=== PATIENT | female | born 1985 | race Caucasian/White ===

== ENCOUNTER → 2019-07-01 | Outpatient (CLI) | payer OTHER ==
[~2019-07-01] MED LIST: BCP; HYDMOR2 PO; NAPR500 PO; RXHYDMOR2 PO
[2019-07-01 18:30] LABS: BASOPHILS ABSOLUTE AUTO 0.06 K/mm3 (0.00-0.23); BASOPHILS PERCENT AUTO 1 % (0-2); EOSINOPHILS ABSOLUTE AUTO 0.33 K/mm3 (0.00-0.68); EOSINOPHILS PERCENT AUTO 4 % (0-6); Hematocrit 37.9 % (33.0-51.0); Hemoglobin 11.8 g/dL (11.5-16.0); IMMATURE GRAN ABSOLUTE AUTO 0.02 K/mm3 (0.00-0.10); IMMATURE GRAN PERCENT AUTO 0 % (0-1); LYMPHOCYTES ABSOLUTE AUTO 3.44 K/mm3 (0.84-5.20); LYMPHOCYTES PERCENT AUTO 40 % (21-46); MONOCYTES ABSOLUTE AUTO 0.65 K/mm3 (0.16-1.47); MONOCYTES PERCENT AUTO 8 % (4-13); Mean Corpuscular HGB 26.8 pg (26.0-34.0); Mean Corpuscular HGB Conc 31.1 g/dL (31.5-36.5); Mean Corpuscular Volume 86 fL (80-100); Mean Platelet Volume 9.8 fL (9.1-12.4); NEUTROPHILS ABSOLUTE AUTO 4.16 K/mm3 (1.96-9.15); NEUTROPHILS PERCENT AUTO 48 % (41-73); Platelet Count 321 K/mm3 (150-400); RDW Coefficient Variation 14.6 % (11.7-14.2); RDW Standard Deviation 46.6 fL (35.1-46.3); Red Blood Cell Count 4.41 M/mm3 (3.80-5.20); White Blood Cell Count 8.66 K/mm3 (4.00-11.30)
== END | disposition home or self-care (01) ==
LOC: LAB SHORT 17:30 → LAB 17:30
PROVIDERS: Emergency Medicine
DX: R53.83 Other fatigue (principal)
CPT/HCPCS: 84443; 85025

== ENCOUNTER 2020-02-02 06:13 | Day surgery (SDC) | payer OTHER ==
[~2020-02-02] VITALS: Ht 165.1 cm; Wt 94.7 kg
[~2020-02-02 06:13] MED LIST changes: +OMEP20ER PO
[2020-02-02] MEDS ORDERED: SERT100 (06:48)
[2020-02-02] MEDS ORDERED: HYDCHL25 (06:48)
[2020-02-02] MEDS ORDERED: Norco 5-325 Ta1 EACH (06:49)
--- NOTE | 2020-02-02 09:12 | NUR ---
02/02/20 0912 Sara Gray UPON ARRIVING TO STEP DOWN RN ASSISTED PT TO THE CHAIR. RN PROVIDED WARM BLANKETS, BEVERAGES, SNACKS, CALL LIGHT. PT STATED SHE WOULD NOT LIKE HER FRIEND BACK AT THIS TIME. VSS. PT STATED NAUSEA HAS RESOLVED AND IS TOLERAING PO FLUIDS AND SNACKS WELL. PT STATED AT 903 THAT HER PAIN WAS 6/10. RN TREATED WITH IV PAIN MEDICATION PER DR'S ORDERS. NO NEEDS AT THIS TIME. PT IS RESTING WITH EYES CLOSED.
== END 2020-02-02 09:50 | disposition home or self-care (01) ==
LOC: ORSCSDS 06:13
PROVIDERS: Obstetrics & Gynecology
PROC: 0UB74ZZ Excision of Bilateral Fallopian Tubes, Percutaneous Endoscopic Approach (ICD-10-PCS; principal; 2020-02-02 07:30)
DX: Z30.2 Encounter for sterilization (principal); N80.3 Endometriosis of pelvic peritoneum; Z87.891 Personal history of nicotine dependence
CPT/HCPCS: 88302; J0171; J0690; J1100; J1885; J2250; J2405; J2704; J2710; J2765; J3010; J7120

== ENCOUNTER 2020-12-12 06:04 | Day surgery (SDC) | payer OTHER ==
[2020-12-10 12:20] LABS: BASOPHILS ABSOLUTE AUTO 0.06 K/mm3 (0.00-0.23); BASOPHILS PERCENT AUTO 1 % (0-2); EOSINOPHILS ABSOLUTE AUTO 0.15 K/mm3 (0.00-0.68); EOSINOPHILS PERCENT AUTO 2 % (0-6); Hematocrit 31.9 % (33.0-51.0); Hemoglobin 9.7 g/dL (11.5-16.0); IMMATURE GRAN ABSOLUTE AUTO 0.02 K/mm3 (0.00-0.10); IMMATURE GRAN PERCENT AUTO 0 % (0-1); LYMPHOCYTES PERCENT AUTO 33 % (21-46); MONOCYTES ABSOLUTE AUTO 0.45 K/mm3 (0.16-1.47); MONOCYTES PERCENT AUTO 6 % (4-13); Mean Corpuscular HGB 25.4 pg (26.0-34.0); Mean Corpuscular HGB Conc 30.4 g/dL (31.5-36.5); Mean Corpuscular Volume 84 fL (80-100); Mean Platelet Volume 9.3 fL (9.1-12.4); NEUTROPHILS ABSOLUTE AUTO 4.86 K/mm3 (1.96-9.15); NEUTROPHILS PERCENT AUTO 59 % (41-73); Platelet Count 385 K/mm3 (150-400); RDW Coefficient Variation 13.6 % (11.7-14.2); RDW Standard Deviation 41.1 fL (35.1-46.3); Red Blood Cell Count 3.82 M/mm3 (3.80-5.20); White Blood Cell Count 8.24 K/mm3 (4.00-11.30)
[2020-12-10 14:22] LABS: Alanine Aminotransfer (ALT/SGP 23 U/L (12-78); Albumin, Blood 3.7 g/dL (3.4-5.0); Albumin/Globulin Ratio 1.1 (0.8-1.8); Alk Phos 57 U/L (50-136); Anion Gap 5 mmol/L (6-16); Aspartate Aminotrans (AST/SGOT 11 U/L (12-37); Bilirubin, Total 0.2 mg/dL (0.1-1.0); Blood Urea Nitrogen 15 mg/dL (8-24); Bun/Creatinine Ratio 23.6 (12.0-20.0); CO2, Blood 27 mmol/L (21-32); Chloride, Blood 105 mmol/L (98-108); Creatinine, Blood 0.64 mg/dL (0.40-1.00); Globulin, Blood 3.4 g/dL (2.2-4.0); Glomerular Filtration Rate >60 (60-); Glucose, Blood 91 mg/dL (70-99); Potassium, Blood 3.2 mmol/L (3.5-5.5); Sodium, Blood 137 mmol/L (136-145); Total Protein, Blood 7.1 g/dL (6.4-8.2)
[~2020-12-12] VITALS: Ht 165.1 cm; Wt 95.8 kg
[~2020-12-12 06:04] MED LIST changes: +HYDCHL25 PO; +Norco 5-325 Ta1 EACH; +SERT100 PO
--- NOTE | 2020-12-12 06:50 | NUR ---
Ambulatory in Day Surgery History, Chart, Medications and Allergies reviewed before start of procedure. Lungs clear T/O to Auscultation. Patient confirms NPO status and agrees with scheduled surgery. Pre-Op teaching done. Pt verbalizes understanding.
--- NOTE | 2020-12-12 11:35 | NUR ---
RECEIVED PT FROM ELVA [place] IN PACU. PT VERY SLEEPY BUT AROUSABLE, A/O, AND ABLE TO ANSWER QUESTIONS APPROPRIATELY. SLID OVER TO THE BED USING A SLIDER SHEET. ON 2 LITERS O2. REPORTS NO PAIN EXCEPT FOR SOME CRAMPING. K-PAD PROVIDED FOR COMFORT. REPORTS NO NAUSEA. LAP SITES CDI, MCCOY IN PLACE, PATENT AND DRAINING TO GRAVITY. MINIMAL DRAINAGE NOTED ON IRAM PAD.
--- NOTE | 2020-12-12 17:18 | NUR ---
SHIFT SUMMARY PT STATUS POST FOR TOTAL LAP HYSTER WITH A L OOPHORECTOMY. PT IS AMBULATING WELL IN THE ROOM. MCCOY HAS BEEN DC'D AND PT IS VOIDING WELL ON HER OWN. C/O CRAMPING PAIN IN THE ABD THAT IS WELL CONTROLLED WITH ORAL PAIN MEDICATION. BEEN RESTING COMFORTABLY FOR THE MAJORITY OF THE SHIFT VSS. WILL REPORT TO TENZIN STEVENSON.
--- NOTE | 2020-12-12 19:07 | NUR ---
RECEIVED REPORT AND ASSUMED CARE OF PT. SHE IS LYING IN BED, AWAKE, ALERT AND RESPONSIVE. SHE REPORTS ADEQUATE PAIN CONTROL AT THIS TIME, DENIES ANY NEEDS. DENIES NEEDING ANY ASSISTANCE TO THE BATHROOM. MALINDA.
[2020-12-13 04:18] LABS: BASOPHILS ABSOLUTE AUTO 0.03 K/mm3 (0.00-0.23); BASOPHILS PERCENT AUTO 0 % (0-2); EOSINOPHILS ABSOLUTE AUTO 0.03 K/mm3 (0.00-0.68); EOSINOPHILS PERCENT AUTO 0 % (0-6); Hematocrit 31.6 % (33.0-51.0); Hemoglobin 9.6 g/dL (11.5-16.0); IMMATURE GRAN ABSOLUTE AUTO 0.06 K/mm3 (0.00-0.10); IMMATURE GRAN PERCENT AUTO 0 % (0-1); LYMPHOCYTES ABSOLUTE AUTO 3.04 K/mm3 (0.84-5.20); LYMPHOCYTES PERCENT AUTO 19 % (21-46); MONOCYTES ABSOLUTE AUTO 0.95 K/mm3 (0.16-1.47); MONOCYTES PERCENT AUTO 6 % (4-13); Mean Corpuscular HGB 25.4 pg (26.0-34.0); Mean Corpuscular HGB Conc 30.4 g/dL (31.5-36.5); Mean Corpuscular Volume 84 fL (80-100); Mean Platelet Volume 9.3 fL (9.1-12.4); NEUTROPHILS ABSOLUTE AUTO 11.92 K/mm3 (1.96-9.15); NEUTROPHILS PERCENT AUTO 74 % (41-73); Platelet Count 384 K/mm3 (150-400); RDW Coefficient Variation 13.8 % (11.7-14.2); RDW Standard Deviation 42.2 fL (35.1-46.3); Red Blood Cell Count 3.78 M/mm3 (3.80-5.20); White Blood Cell Count 16.03 K/mm3 (4.00-11.30)
--- NOTE | 2020-12-13 04:52 | NUR ---
SHIFT SUMMARY: CHERYL IS A&OX4. VSS, NO ACUTE EVENTS OVERNIGHT. IS GIVEN, EDUCATED AND ENCOURAGED, PT VERBALIZED UNDERSTANDING. SHE REPORTS ADEQUATE PAIN CONTROL WITH TORADOL AND PERCOCET. SHE IS INDEPENDENT IN THE ROOM, VOIDING WITHOUT DIFFICULTY. ABDOMINAL BINDER IN PLACE. IV TO R HAND PATENT, TOLERATING PO INTAKE WELL, LAP SITES C/D&I. SHE IS LYING IN BED WITH THE CALL LIGHT IN REACH. WILL REPORT TO DAY SHIFT RN.
[2020-12-13] MEDS ORDERED: DOCU100 PO (11:08)
[2020-12-13] MEDS ORDERED: IBUP400 PO (11:09)
[2020-12-13] MEDS ORDERED: DULCOLAX400 MG/5 M PO (11:09)
[2020-12-13] MEDS ORDERED: PROM25 PO (11:10)
[2020-12-13] MEDS ORDERED: Percocet 5-3251 EACH PO (11:10)
[2020-12-13] MEDS ORDERED: SENN187 PO (11:11)
[2020-12-13] MEDS ORDERED: SIME80CH PO (11:11)
--- NOTE | 2020-12-13 11:51 | NUR ---
DISCHARGE SUMMARY PT A&OX4, VSS, INDEPENDENT IN ROOM, TO BRP, VOIDING WELL, PAIN MANAGED WITH 10 MG PRN, JACE PO; DISCHARGE INSTRUCTIONS PROVIDED, PT REP UNDERSTANDING THOSE INSTRUCTIONS. LEFT FLOOR WALKING OUT (DECLINING WC), TO GO HOME WITH MOM, WITH ALL PERSONAL POSSESSIONS INCLUDING DC PACKET AND SCRIPT WITH PERC/PHENERGAN AND MOTRIN. IV DC'D.
== END 2020-12-13 11:47 | disposition home or self-care (01) ==
LOC: ORSCMMR 06:04 → SURS 12:10 → ORSCMMR 14:00 → ORD 14:00 → ORSCMMR 12-13 11:47
PROVIDERS: Obstetrics & Gynecology
PROC: 0UT14ZZ Resection of Left Ovary, Percutaneous Endoscopic Approach (ICD-10-PCS; principal; 2020-12-12 07:30)
PROC: 8E0W4CZ Robotic Assisted Procedure of Trunk Region, Percutaneous Endoscopic Approach (ICD-10-PCS; principal; 2020-12-12 07:30)
PROC: 0UT94ZZ Resection of Uterus, Percutaneous Endoscopic Approach (ICD-10-PCS; principal; 2020-12-12 07:30)
DX: N92.1 Excessive and frequent menstruation with irregular cycle (principal); N94.6 Dysmenorrhea, unspecified; D50.0 Iron deficiency anemia secondary to blood loss (chronic); I10 Essential (primary) hypertension; E66.01 Morbid (severe) obesity due to excess calories; Z68.35 Body mass index [BMI] 35.0-35.9, adult
CPT/HCPCS: 58571; S2900; 36415; 80053; 85025; 86850; 86900; 86901; A9270; J0690; J1100; J1170; J1885; J2250; J2370; J2405; J2704; J2765; J3010; J7120

== ENCOUNTER → 2023-05-03 | Outpatient (CLI) | payer BC ==
[~2023-05-03] MED LIST changes: +DOCU100 PO; +DULCOLAX400 MG/5 M PO; +IBUP400 PO; +PROM25 PO; +Percocet 5-3251 EACH PO; +SENN187 PO; +SIME80CH PO
[2023-05-03 15:15] LABS: BASOPHILS ABSOLUTE AUTO 0.06 K/mm3 (0.00-0.23); BASOPHILS PERCENT AUTO 1 % (0-2); EOSINOPHILS ABSOLUTE AUTO 0.16 K/mm3 (0.00-0.68); EOSINOPHILS PERCENT AUTO 2 % (0-6); Hematocrit 38.7 % (33.0-51.0); Hemoglobin 12.9 g/dL (11.5-16.0); IMMATURE GRAN ABSOLUTE AUTO 0.02 K/mm3 (0.00-0.10); IMMATURE GRAN PERCENT AUTO 0 % (0-1); LYMPHOCYTES ABSOLUTE AUTO 2.43 K/mm3 (0.84-5.20); LYMPHOCYTES PERCENT AUTO 34 % (21-46); MONOCYTES ABSOLUTE AUTO 0.38 K/mm3 (0.16-1.47); MONOCYTES PERCENT AUTO 5 % (4-13); Mean Corpuscular HGB 29.1 pg (26.0-34.0); Mean Corpuscular HGB Conc 33.3 g/dL (31.5-36.5); Mean Corpuscular Volume 87 fL (80-100); Mean Platelet Volume 9.8 fL (9.1-12.4); NEUTROPHILS ABSOLUTE AUTO 4.06 K/mm3 (1.96-9.15); NEUTROPHILS PERCENT AUTO 57 % (41-73); Platelet Count 343 K/mm3 (150-400); RDW Coefficient Variation 12.7 % (11.7-14.2); RDW Standard Deviation 40.5 fL (35.1-46.3); Red Blood Cell Count 4.44 M/mm3 (3.80-5.20); White Blood Cell Count 7.11 K/mm3 (4.00-11.30)
[2023-05-03 15:46] LABS: Alanine Aminotransfer (ALT/SGP 24 U/L (12-78); Albumin/Globulin Ratio 1.3 (0.8-1.8); Alk Phos 59 U/L (50-136); Anion Gap 7 mmol/L (6-16); Aspartate Aminotrans (AST/SGOT 15 U/L (12-37); Bilirubin, Total 0.5 mg/dL (0.1-1.0); Blood Urea Nitrogen 11 mg/dL (8-24); Bun/Creatinine Ratio 19.5 (12.0-20.0); CO2, Blood 27 mmol/L (21-32); Calcium, Blood 9.3 mg/dL (8.5-10.1); Chloride, Blood 103 mmol/L (98-108); Creatinine, Blood 0.56 mg/dL (0.40-1.00); Globulin, Blood 3.1 g/dL (2.2-4.0); Glomerular Filtration Rate 120 (60-); Glucose, Blood 103 mg/dL (70-99); Potassium, Blood 3.2 mmol/L (3.5-5.5); Sodium, Blood 137 mmol/L (136-145); Total Protein, Blood 7.1 g/dL (6.4-8.2)
[2023-05-05 13:04] LABS: C-REACTIVE PROTEIN, EXT RANGE <0.290 mg/dL (0.000-0.300)
[2023-05-10 05:51] LABS: ANKYLOSING SPONDYLITIS HLAB27 Negative
== END ==
LOC: LAB 15:02 → LAB SHORT 15:02
PROVIDERS: Physician Assistant
DX: M25.552 Pain in left hip (principal); M25.50 Pain in unspecified joint
CPT/HCPCS: 80053; 81374; 85025; 85651; 86140